=== PATIENT | female | born 1950 ===

== ENCOUNTER → 2024-07-19 12:43 | Outpatient (REF) | payer OTHER, SELFPAY | LOC: HWRCS 12:43 | PROVIDERS: ATTENDING PHYSICIAN Nurse Practitioner; FAMILY PHYSICIAN Family Medicine | DX: R00.2 Palpitations (principal); I10 Essential (primary) hypertension | CPT/HCPCS: 93306 ==

== ENCOUNTER 2024-08-03 06:10 | Day surgery (SDC) | payer OTHER, SELFPAY ==
[2024-08-03] VITALS (9 sets, daily range): BP systolic 122–145; BP diastolic 60–77; BMI 32.8
[2024-08-03] MEDS: NORMOSOL-R/PLASMALYTE-A 1000 IV (06:25)
[2024-08-03] MEDS: TYLENOL 1000 MG PO (06:59)
[2024-08-03] MEDS: CELEBREX 200 MG PO (06:59)
[2024-08-03] MEDS: SUBLIMAZE 50 MCG IV (08:54)
== END 2024-08-03 10:30 | disposition home or self-care (01) ==
LOC: SDS 06:10
PROVIDERS: ATTENDING PHYSICIAN Student in an Organized Health Care Education/Training Program
DX: S83.242A Other tear of medial meniscus, current injury, left knee, initial encounter (principal); X50.1XXA Overexertion from prolonged static or awkward postures, initial encounter; M65.90 Unspecified synovitis and tenosynovitis, unspecified site
CPT/HCPCS: 29879; 29881; 29876